=== PATIENT | female | born 1995 | race Native Hawaiian/Other Pacific Islander ===

== ENCOUNTER 2017-01-02 14:16 | Emergency (ER) | payer SELFPAY ==
--- NOTE | 2017-01-02 15:28 | C.PDOC ---
History Of Present Illness <Zaida Vo - Last Filed: 01/02/17 16:41> <Deja Rich - Last Filed: 01/03/17 14:25> Myke Cagle, a 21 year old female, who has a past medical history of kidney stones presents to the emergency department complaining of congestion and abdominal pain. The patient reports that for the past few weeks she has been having pain in her kidneys that only resolves when she vomits. She states that when she experiences the pain in her kidneys it spreads and causes pain throughout her entire body. Patient states she was seen by a doctor and prescribed percocet and ciprofloxacin. Denies dysuria, fever, hematuria,vaginal bleeding. (Zaida Vo) History Per: Patient History/Exam Limitations: no limitations <Zaida Vo - Last Filed: 01/02/17 16:41> <Deja Rich - Last Filed: 01/03/17 14:25> Time Seen by Provider: 01/02/17 15:16 Chief Complaint (Nursing): Back Pain Past Medical History Reviewed: Historical Data, Nursing Documentation, Vital Signs - Medical History PMH: Kidney Stones Other Family History: Kidney stones - Social History Hx Alcohol Use: No Hx Substance Use: No - Immunization History Hx Tetanus Toxoid Vaccination: No Hx Influenza Vaccination: No Hx Pneumococcal Vaccination: No <Zaida Vo - Last Filed: 01/02/17 16:41> Surgical History: No Surg Hx <Deja Rich - Last Filed: 01/03/17 14:25> Vital Signs: Last Vital Signs Temp 98 F 01/02/17 16:52 Pulse 80 01/02/17 16:52 Resp 16 01/02/17 16:52 BP 112/60 01/02/17 16:52 Pulse Ox 99 01/02/17 16:52 Review Of Systems Except As Marked, All Systems Reviewed And Found Negative. Constitutional: Negative for: Fever ENT: Positive for: Nose Congestion Gastrointestinal: Positive for: Abdominal Pain (abdominal pain due to kidney stones) Genitourinary: Negative for: Dysuria, Vaginal Bleeding <Zaida Vo - Last Filed: 01/02/17 16:41> Physical Exam - Physical Exam Appears: Well, Non-toxic, No Acute Distress Skin: Normal Color, Warm, Dry Head: Atraumatic, Normacephalic Eye(s): bilateral: Normal Inspection, PERRL, EOMI Ear(s): Left: Normal Chest: No Deformity, No Tenderness Cardiovascular: Rhythm Regular Respiratory: Normal Breath Sounds, No Wheezing Gastrointestinal/Abdominal: Normal Exam, Bowel Sounds, Soft, No Tenderness, No Guarding, No Rebound Neurological/Psych: Oriented x3, Normal Speech <Zaida Vo - Last Filed: 01/02/17 16:41> - Physical Exam Neck: Normal ROM Chest: Symmetrical Back: Normal Inspection, No CVA Tenderness, No Paraspinal Tenderness Extremity: Bilateral: Atraumatic, Normal Color And Temperature, Normal ROM Gait: Steady <Deja Rich - Last Filed: 01/03/17 14:25> ED Course And Treatment O2 Sat by Pulse Oximetry: 97 (RA) Pulse Ox Interpretation: Normal <Zaida Vo - Last Filed: 01/02/17 16:41> Medical Decision Making <Zaida Vo - Last Filed: 01/02/17 16:41> <Deja Rich - Last Filed: 01/03/17 14:25> Medical Decision Makin Initial Impression: 21 year old female presenting with abdominal pain and congestion Initial Plan: * HCG-Qualitative * Urinalysis * Reevaluation Scribe Attestation Documented by Jaclyn Sifuentes acting as a scribe fro Zaida Hilario MD. Provider Attestation All medical record entries made by the scribe were at my direction and personally dictated by me. I have reviewed the chart and agree that the record accurately reflects my personal performance, history, physical exam, medical decision making, and the department course for this patient. Ihave also personally directed, reviewed, and agree with the discharge instructions and disposition. (Zaida Vo) UA reviewed, negative for , shows calcium oxylate stone and few RBCs. 14 patient re-evaluated and remains well in no acute distress, currently no pain in ED. recommend fluids, rest and analgesics as needed with food. Will prescribe Rx. (Deja Rich) Disposition <Zaida Vo - Last Filed: 01/02/17 16:41> - Disposition Disposition Time: 16:50 - POA Present On Arrival: None <Deja Rich - Last Filed: 01/03/17 14:25> - Disposition Referrals: [facility] [Outside] [facility] [Outside] Disposition: HOME/ ROUTINE Condition: STABLE Additional Instructions: Follow up with your primary medical doctor or clinic in 2-5 days for further evaluation. Take medications as prescribed. Return to the emergency department at any time if symptoms persist or worsen. Prescriptions: Albuterol 0.083% [Albuterol 0.083% Inhal Zakiya (2.5 mg/3 ml) UD] 2.5 mg IH Q4 # 100 neb Omeprazole 20 mg PO DAILY #20 capsule. Ondansetron ODT [Zofran ODT] 1 odt PO BID PRN #6 odt PRN Reason: Nausea/Vomiting Instructions: Kidney Stones (DC) Forms: [employer] (Ivorian) - Clinical Impression Clinical Impression: Renal colic on left side
[2017-01-02 15:54] LABS: HCG,QUALITATIVE URINE NEGATIVE (NEGATIVE)
[2017-01-02 16:04] LABS: SQUAMOUS EPITHIAL 2 /hpf (0-5); URINE BACTERIA RARE (<OCC); URINE BILIRUBIN NEGATIVE (NEGATIVE); URINE BLOOD NEGATIVE (NEGATIVE); URINE CALCIUM OXALATE CRYSTALS FEW /hpf (<OCC); URINE CLARITY Hazy (Clear); URINE COLOR Yellow (YELLOW); URINE GLUCOSE (UA) NORMAL (Normal); URINE LEUKOCYTE ESTERASE NEG Leu/uL (Negative); URINE NITRATE NEGATIVE (NEGATIVE); URINE PROTEIN NEGATIVE (NEGATIVE); URINE UROBILINOGEN NORMAL mg/dL (0.2-1.0)
[2017-01-02 16:52] VITALS: BP 112/60; PULSE 80; RESP 16; TEMP 98; O2SAT 99
--- NOTE | 2017-01-03 14:28 | C.PDOC ---
History Of Present Illness 21 year old female, who has a past medical history of kidney stones presents to the emergency department complaining of nasal congestion and right flank pain for 2 weeks. The patient reports pain in her flank which radiates to groin and was associated with vomiting. Patient was seen at another facility and treated with Percocet and Cipro. Patient states the percocet she stopped taking because of nausea. She reports nasal congestion and unable to breath through nose, she ran out of her albuterol and nasal spray. She needs med refill. Currently in the ER denies any abdominal or flank pain. Denies dysuria, fever, hematuria, vaginal bleeding. Time Seen by Provider: 01/02/17 15:16 Chief Complaint (Nursing): Back Pain History Per: Patient History/Exam Limitations: no limitations Onset/Duration Of Symptoms: Days Reports Recently: Treated By A Physician Past Medical History Reviewed: Historical Data, Nursing Documentation, Vital Signs Vital Signs: Last Vital Signs Temp 98 F 01/02/17 16:52 Pulse 80 01/02/17 16:52 Resp 16 01/02/17 16:52 BP 112/60 01/02/17 16:52 Pulse Ox 99 01/02/17 16:52 - Medical History PMH: No Chronic Diseases Surgical History: No Surg Hx Family History: States: Other Other Family History: Kidney stones - Social History Hx Alcohol Use: No Hx Substance Use: No - Immunization History Hx Tetanus Toxoid Vaccination: No Hx Influenza Vaccination: No Hx Pneumococcal Vaccination: No Review Of Systems Constitutional: Negative for: Fever, Weakness, Malaise ENT: Positive for: Nose Congestion Cardiovascular: Negative for: Chest Pain, Palpitations Respiratory: Negative for: Cough, Shortness of Breath Gastrointestinal: Positive for: Nausea. Negative for: Vomiting, Abdominal Pain , Diarrhea Genitourinary: Negative for: Dysuria, Hematuria, Vaginal Bleeding Neurological: Negative for: Headache Physical Exam - Physical Exam Appears: Well, Non-toxic, No Acute Distress Skin: Warm, Dry, No Rash Head: Atraumatic, Normacephalic Eye(s): bilateral: Normal Inspection Nose: Normal Oral Mucosa: Moist Neck: Normal ROM Chest: Symmetrical Cardiovascular: Rhythm Regular, No Murmur Respiratory: Normal Breath Sounds, No Wheezing Gastrointestinal/Abdominal: Bowel Sounds, Soft, No Tenderness, No Distention, No Guarding Back: Normal Inspection, No CVA Tenderness, No Vertebral Tenderness, No Paraspinal Tenderness Extremity: Bilateral: Atraumatic, Normal Color And Temperature, Normal ROM Neurological/Psych: Oriented x3, Normal Speech Gait: Steady ED Course And Treatment O2 Sat by Pulse Oximetry: 99 Medical Decision Making Medical Decision Making: Initial Impression: 21 year old female presenting with abdominal pain and congestion Initial Plan: HCG-Qualitative Urinalysis Reevaluation UA reviewed, negative for , shows calcium oxylate stone and few RBCs. patient re-evaluated and remains well in no acute distress, currently no pain in ED. recommend fluids, rest and analgesics as needed with food. Will prescribe Rx. Disposition Counseled Patient/Family Regarding: Diagnosis, Need For Followup, Rx Given - Disposition Referrals: [facility] [Outside] [facility] [Outside] Disposition: HOME/ ROUTINE Disposition Time: 16:50 Condition: STABLE Additional Instructions: Follow up with your primary medical doctor or clinic in 2-5 days for further evaluation. Take medications as prescribed. Return to the emergency department at any time if symptoms persist or worsen. Prescriptions: Albuterol 0.083% [Albuterol 0.083% Inhal Zakiya (2.5 mg/3 ml) UD] 2.5 mg IH Q4 # 100 neb Omeprazole 20 mg PO DAILY #20 capsule. Ondansetron ODT [Zofran ODT] 1 odt PO BID PRN #6 odt PRN Reason: Nausea/Vomiting Instructions: Kidney Stones (DC) Forms: [employer] (Serbian) - Clinical Impression Clinical Impression: Renal colic on right side
== END 2017-01-02 16:52 | disposition home or self-care (01) ==
LOC: C.ER 14:16
DX: N23 Unspecified renal colic (principal)